=== PATIENT | male | born 1970 | race Caucasian/White ===

== ENCOUNTER 2024-11-17 08:09 | Outpatient (CLI) | payer MEDICARE, OTHER, SELFPAY | END 2024-11-17 08:10 | disposition home or self-care (01) | LOC: WOUND 08:17 | PROVIDERS: PCP Physician Assistant; Referring Provider Podiatrist; Visit Provider Nurse Practitioner Family | DX: M79.2 Neuralgia and neuritis, unspecified (principal); L97.522 Non-pressure chronic ulcer of other part of left foot with fat layer exposed; L97.512 Non-pressure chronic ulcer of other part of right foot with fat layer exposed; L97.511 Non-pressure chronic ulcer of other part of right foot limited to breakdown of skin; C81.40 Lymphocyte-rich Hodgkin lymphoma, unspecified site; G89.4 Chronic pain syndrome; Z86.14 Personal history of Methicillin resistant Staphylococcus aureus infection | CPT/HCPCS: 11042; G0463 ==

== ENCOUNTER 2024-11-24 08:15 | Outpatient (CLI) | payer MEDICARE, OTHER, SELFPAY | END 2024-11-24 08:16 | disposition home or self-care (01) | LOC: WOUND 08:15 | PROVIDERS: PCP Physician Assistant; Visit Provider Nurse Practitioner Family | DX: M79.2 Neuralgia and neuritis, unspecified (principal); L97.528 Non-pressure chronic ulcer of other part of left foot with other specified severity; L97.512 Non-pressure chronic ulcer of other part of right foot with fat layer exposed; C81.40 Lymphocyte-rich Hodgkin lymphoma, unspecified site; G89.4 Chronic pain syndrome; Z86.14 Personal history of Methicillin resistant Staphylococcus aureus infection | CPT/HCPCS: 11042 ==

== ENCOUNTER 2024-12-01 12:17 | Outpatient (CLI) | payer MEDICARE, OTHER, SELFPAY | END 2024-12-01 12:18 | disposition home or self-care (01) | LOC: WOUND 12:17 | PROVIDERS: PCP Physician Assistant; Visit Provider Nurse Practitioner Family | DX: M79.2 Neuralgia and neuritis, unspecified (principal); L97.512 Non-pressure chronic ulcer of other part of right foot with fat layer exposed; L97.528 Non-pressure chronic ulcer of other part of left foot with other specified severity; C81.40 Lymphocyte-rich Hodgkin lymphoma, unspecified site; G89.4 Chronic pain syndrome; Z86.14 Personal history of Methicillin resistant Staphylococcus aureus infection | CPT/HCPCS: 11042 ==

== ENCOUNTER 2024-12-15 12:18 | Outpatient (CLI) | payer MEDICARE, OTHER, SELFPAY | END 2024-12-15 12:19 | disposition home or self-care (01) | LOC: WOUND 12:19 | PROVIDERS: PCP Physician Assistant; Visit Provider Nurse Practitioner Family | DX: M79.2 Neuralgia and neuritis, unspecified (principal); L97.528 Non-pressure chronic ulcer of other part of left foot with other specified severity; C81.40 Lymphocyte-rich Hodgkin lymphoma, unspecified site; G89.4 Chronic pain syndrome; Z86.14 Personal history of Methicillin resistant Staphylococcus aureus infection | CPT/HCPCS: 11042 ==

== ENCOUNTER 2024-12-17 14:43 | Outpatient (CLI) | payer MEDICARE, OTHER, SELFPAY | END 2024-12-17 14:44 | disposition home or self-care (01) | LOC: WOUND 14:44 | PROVIDERS: PCP Physician Assistant; Visit Provider Nurse Practitioner Family | DX: M79.2 Neuralgia and neuritis, unspecified (principal); L97.528 Non-pressure chronic ulcer of other part of left foot with other specified severity; C81.40 Lymphocyte-rich Hodgkin lymphoma, unspecified site; G89.4 Chronic pain syndrome; Z86.14 Personal history of Methicillin resistant Staphylococcus aureus infection | CPT/HCPCS: 29445 ==

== ENCOUNTER 2024-12-22 13:06 | Outpatient (CLI) | payer MEDICARE, OTHER, SELFPAY | END 2024-12-22 13:07 | disposition home or self-care (01) | LOC: WOUND 13:06 | PROVIDERS: PCP Physician Assistant; Visit Provider Nurse Practitioner Family | DX: M79.2 Neuralgia and neuritis, unspecified (principal); L97.422 Non-pressure chronic ulcer of left heel and midfoot with fat layer exposed; Z86.718 Personal history of other venous thrombosis and embolism; I73.9 Peripheral vascular disease, unspecified; I89.0 Lymphedema, not elsewhere classified; Z72.0 Tobacco use; G89.4 Chronic pain syndrome; C81.40 Lymphocyte-rich Hodgkin lymphoma, unspecified site; Z86.14 Personal history of Methicillin resistant Staphylococcus aureus infection | CPT/HCPCS: 11042 ==

== ENCOUNTER 2024-12-25 10:16 | Outpatient (CLI) | payer MEDICARE, OTHER, SELFPAY | END 2024-12-25 10:17 | disposition home or self-care (01) | LOC: WOUND 10:16 | PROVIDERS: PCP Physician Assistant; Visit Provider Nurse Practitioner Family | DX: M79.2 Neuralgia and neuritis, unspecified (principal); L97.528 Non-pressure chronic ulcer of other part of left foot with other specified severity; C81.40 Lymphocyte-rich Hodgkin lymphoma, unspecified site; G89.4 Chronic pain syndrome; Z86.14 Personal history of Methicillin resistant Staphylococcus aureus infection | CPT/HCPCS: 29445 ==

== ENCOUNTER 2024-12-29 13:10 | Outpatient (CLI) | payer MEDICARE, OTHER, SELFPAY | END 2024-12-29 13:11 | disposition home or self-care (01) | LOC: WOUND 13:10 | PROVIDERS: PCP Physician Assistant; Visit Provider Nurse Practitioner Family | DX: M79.2 Neuralgia and neuritis, unspecified (principal); L97.528 Non-pressure chronic ulcer of other part of left foot with other specified severity; C81.40 Lymphocyte-rich Hodgkin lymphoma, unspecified site; G89.4 Chronic pain syndrome; Z86.14 Personal history of Methicillin resistant Staphylococcus aureus infection | CPT/HCPCS: 15275; Q4158 ==

== ENCOUNTER 2025-01-01 15:02 | Outpatient (CLI) | payer MEDICARE, OTHER, SELFPAY | END 2025-01-01 15:03 | disposition home or self-care (01) | LOC: WOUND 15:03 | PROVIDERS: PCP Physician Assistant; Visit Provider Nurse Practitioner Family | DX: M79.2 Neuralgia and neuritis, unspecified (principal); L97.528 Non-pressure chronic ulcer of other part of left foot with other specified severity; C81.40 Lymphocyte-rich Hodgkin lymphoma, unspecified site; G89.4 Chronic pain syndrome; Z86.14 Personal history of Methicillin resistant Staphylococcus aureus infection | CPT/HCPCS: 29445 ==

== ENCOUNTER 2025-01-05 13:22 | Outpatient (CLI) | payer MEDICARE, OTHER, SELFPAY | END 2025-01-05 13:23 | disposition home or self-care (01) | LOC: WOUND 13:22 | PROVIDERS: PCP Physician Assistant; Visit Provider Nurse Practitioner Family | DX: M79.2 Neuralgia and neuritis, unspecified (principal); L97.528 Non-pressure chronic ulcer of other part of left foot with other specified severity; C81.40 Lymphocyte-rich Hodgkin lymphoma, unspecified site; G89.4 Chronic pain syndrome; Z86.14 Personal history of Methicillin resistant Staphylococcus aureus infection | CPT/HCPCS: G0463 ==

== ENCOUNTER 2025-01-12 13:17 | Outpatient (CLI) | payer MEDICARE, OTHER, SELFPAY | END 2025-01-12 13:18 | disposition home or self-care (01) | LOC: WOUND 13:17 | PROVIDERS: PCP Physician Assistant; Visit Provider Nurse Practitioner Family | DX: M79.2 Neuralgia and neuritis, unspecified (principal); L97.528 Non-pressure chronic ulcer of other part of left foot with other specified severity; C81.40 Lymphocyte-rich Hodgkin lymphoma, unspecified site; G89.4 Chronic pain syndrome; Z86.14 Personal history of Methicillin resistant Staphylococcus aureus infection | CPT/HCPCS: 15275; Q4158 ==

== ENCOUNTER 2025-01-19 13:15 | Outpatient (CLI) | payer MEDICARE, OTHER, SELFPAY | END 2025-01-19 13:16 | disposition home or self-care (01) | LOC: WOUND 13:15 | PROVIDERS: PCP Physician Assistant; Visit Provider Nurse Practitioner Family | DX: M79.2 Neuralgia and neuritis, unspecified (principal); L97.528 Non-pressure chronic ulcer of other part of left foot with other specified severity; G89.4 Chronic pain syndrome; C81.40 Lymphocyte-rich Hodgkin lymphoma, unspecified site; Z86.14 Personal history of Methicillin resistant Staphylococcus aureus infection | CPT/HCPCS: 97597 ==

== ENCOUNTER 2025-01-26 09:06 | Outpatient (CLI) | payer MEDICARE, OTHER, SELFPAY | END 2025-01-26 09:07 | disposition home or self-care (01) | LOC: WOUND 09:06 | PROVIDERS: PCP Physician Assistant; Visit Provider Nurse Practitioner Family | DX: M79.2 Neuralgia and neuritis, unspecified (principal); L97.528 Non-pressure chronic ulcer of other part of left foot with other specified severity; C81.40 Lymphocyte-rich Hodgkin lymphoma, unspecified site; G89.4 Chronic pain syndrome; Z86.14 Personal history of Methicillin resistant Staphylococcus aureus infection | CPT/HCPCS: 11042 ==

== ENCOUNTER 2025-02-02 08:42 | Outpatient (CLI) | payer MEDICARE, OTHER, SELFPAY | END 2025-02-02 08:43 | disposition home or self-care (01) | LOC: WOUND 08:42 | PROVIDERS: PCP Physician Assistant; Visit Provider Nurse Practitioner Family | DX: M79.2 Neuralgia and neuritis, unspecified (principal); L97.528 Non-pressure chronic ulcer of other part of left foot with other specified severity; C81.40 Lymphocyte-rich Hodgkin lymphoma, unspecified site; G89.4 Chronic pain syndrome; Z86.14 Personal history of Methicillin resistant Staphylococcus aureus infection | CPT/HCPCS: 11042 ==

== ENCOUNTER 2025-02-09 12:54 | Outpatient (CLI) | payer MEDICARE, OTHER, SELFPAY | END 2025-02-09 12:55 | disposition home or self-care (01) | LOC: WOUND 12:55 | PROVIDERS: PCP Physician Assistant; Visit Provider Nurse Practitioner Family | DX: M79.2 Neuralgia and neuritis, unspecified (principal); L97.528 Non-pressure chronic ulcer of other part of left foot with other specified severity; C81.40 Lymphocyte-rich Hodgkin lymphoma, unspecified site; G89.4 Chronic pain syndrome; Z86.14 Personal history of Methicillin resistant Staphylococcus aureus infection | CPT/HCPCS: 11042 ==

== ENCOUNTER 2025-02-16 12:53 | Outpatient (CLI) | payer MEDICARE, OTHER, SELFPAY | END 2025-02-16 12:54 | disposition home or self-care (01) | PROVIDERS: PCP Physician Assistant; Visit Provider Nurse Practitioner Family | DX: M79.2 Neuralgia and neuritis, unspecified (principal); L97.528 Non-pressure chronic ulcer of other part of left foot with other specified severity; C81.40 Lymphocyte-rich Hodgkin lymphoma, unspecified site; G89.4 Chronic pain syndrome; Z86.14 Personal history of Methicillin resistant Staphylococcus aureus infection | CPT/HCPCS: 15275; Q4158 ==

== ENCOUNTER 2025-02-23 13:10 | Outpatient (CLI) | payer MEDICARE, OTHER, SELFPAY | END 2025-02-23 13:11 | disposition home or self-care (01) | LOC: WOUND 13:11 | PROVIDERS: PCP Physician Assistant; Visit Provider Nurse Practitioner Family | DX: M79.2 Neuralgia and neuritis, unspecified (principal); L97.528 Non-pressure chronic ulcer of other part of left foot with other specified severity; C81.40 Lymphocyte-rich Hodgkin lymphoma, unspecified site; G89.4 Chronic pain syndrome; Z86.14 Personal history of Methicillin resistant Staphylococcus aureus infection | CPT/HCPCS: G0463 ==

== ENCOUNTER 2025-03-02 13:11 | Outpatient (CLI) | payer MEDICARE, OTHER, SELFPAY | END 2025-03-02 13:12 | disposition home or self-care (01) | LOC: WOUND 13:11 | PROVIDERS: PCP Physician Assistant; Visit Provider Nurse Practitioner Family | DX: M79.2 Neuralgia and neuritis, unspecified (principal); L97.528 Non-pressure chronic ulcer of other part of left foot with other specified severity; C81.40 Lymphocyte-rich Hodgkin lymphoma, unspecified site; G89.4 Chronic pain syndrome; Z86.14 Personal history of Methicillin resistant Staphylococcus aureus infection | CPT/HCPCS: 15275; Q4158 ==

== ENCOUNTER 2025-03-16 13:02 | Outpatient (CLI) | payer MEDICARE, OTHER, SELFPAY | END 2025-03-16 13:03 | disposition home or self-care (01) | LOC: WOUND 13:04 | PROVIDERS: PCP Physician Assistant; Visit Provider Nurse Practitioner Family | DX: M79.2 Neuralgia and neuritis, unspecified (principal); L97.528 Non-pressure chronic ulcer of other part of left foot with other specified severity; C81.40 Lymphocyte-rich Hodgkin lymphoma, unspecified site; G89.4 Chronic pain syndrome; Z86.14 Personal history of Methicillin resistant Staphylococcus aureus infection | CPT/HCPCS: 11042 ==

== ENCOUNTER 2025-03-23 12:51 | Outpatient (CLI) | payer MEDICARE, OTHER, SELFPAY ==
[2025-03-23 16:01] LABS: Hematocrit* 38.1 % (37.0-53.0); Hemoglobin* 11.2 gm/dL (13.5-17.5); Immature Granulocytes Pct Auto 1.1 %; Mean Corpuscular HGB Conc 29 gm/dL (32-36); Mean Corpuscular Hemoglobin 21 pg (26-34); Mean Corpuscular Volume 72 fL (80-100); RDW Coefficient of Variation % 21.8 % (11.5-15.5); Red Blood Count* 5.28 m/uL (4.30-5.90); White Blood Count* 16.24 K/uL (4.50-11.00)
[2025-03-23 16:03] LABS: Immature Granulocytes Abs Auto 0.20 K/uL (0.00-0.30); Lymphocytes Absolute Auto 7.20 K/uL (0.90-2.90); Slide Review Reflex Yes
[2025-03-23 16:33] LABS: Slide Review Acceptable Review (Acceptable)
== END 2025-03-23 12:52 | disposition home or self-care (01) ==
LOC: WOUND 12:52
PROVIDERS: PCP Physician Assistant; Visit Provider Nurse Practitioner Family
DX: M79.2 Neuralgia and neuritis, unspecified (principal); L97.528 Non-pressure chronic ulcer of other part of left foot with other specified severity; G89.4 Chronic pain syndrome; C81.40 Lymphocyte-rich Hodgkin lymphoma, unspecified site; Z86.14 Personal history of Methicillin resistant Staphylococcus aureus infection
CPT/HCPCS: 36415; 85025; 86140; 97597